=== PATIENT | male | born 2000 | race Two or more races ===

== ENCOUNTER 2025-05-10 23:05 | Inpatient (IN) | payer MEDICAID, OTHER ==
[~2025-05-10] VITALS: Ht 175.3 cm; Wt 62.0 kg
--- NOTE | 2025-05-11 00:36 | DVH ---
CT ABDOMEN AND PELVIS WITHOUT CONTRAST: HISTORY: ABD PAIN COMPARISON: None CONTRAST: IV contrast: None TECHNIQUE: Spiral CT performed from the dome of the diaphragm to the pubic symphysis without IV contr ast. Dose reduction technique was used on this scan by utilizing automated exposure control, adjustment of the mA and/or kV according to the patient size. DICOM format image data available to non-affiliated external healthcare facilities or entities on a secure, media free, reciprocally searchable basis wit h patient authorization for at least a 12 month period after the study. FINDINGS: Limited evaluation of the solid organs in the absence of IV contrast. Motor Equipment Lieutenant: Unremarkable Lung bases: No significant opacities or pleural fluid. Hepatobiliary: No focal hepatic lesion or intrahepatic biliary dilatation. Gallbladder appears parviz l. Pancreas normal morphology and duct caliber. Normal splenic parenchyma. : The kidneys are without solid mass, hydronephrosis or nephrolithiasis. Normal ureteral caliber. N o abnormality identified in the bladder. Normal adrenal morphology. GI: No evidence for bowel obstruction. No mesenteric stranding or wall thickening. No intraperitoneal adenopathy, masses or fluid. The appendix is not definitively seen, though there is no CT evidence o f acute appendicitis. Retroperitoneum: No retroperitoneal adenopathy. Cardiovascular: Normal aortic caliber. Musculoskeletal: No focal lytic or blastic lesion. No fracture or acute derangement. IMPRESSION: 1. No acute abdominopelvic abnormality identified.
--- NOTE | 2025-05-11 00:55 | DVH ---
ULTRASOUND OF SCROTUM AND CONTENTS. INDICATION: PAIN COMPARISON: None TECHNIQUE: Multiple real-time grayscale sonographic and color and duplex Doppler images of the scrotu m and its contents were obtained. FINDINGS: The right testicle measures 3.8 x 2.7 x 1.9 cm. The left testicle measures 3.7 x 2.4 x 2.0 cm. Both testicles demonstrate homogeneous echotexture without evidence of focal lesions. Suggestion of m icrolithiasis bilaterally. The right epididymal head measures 1.2 cm. The left epididymal head measures 1.2 cm. Right epididymal cyst measures 3 mm. Subsequent color and duplex Doppler interrogation of the testes demonstrated symmetric normal vascula r flow to both testicles. No focal areas of hyperemia were seen. IMPRESSION: 1. No evidence of torsion, epididymitis, and/or orchitis. 2. 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
[2025-05-11 01:50] LABS: Urine Bacteria None Seen /hpf (None Seen)
[2025-05-11 01:53] LABS: Urine Blood TRACE /uL (Negative); Urine Clarity Clear (Clear); Urine Color Yellow (Yellow); Urine Mucus FEW (None Seen); Urine Protein, UAD Negative (Negative); Urine Specific Gravity 1.029 (1.001-1.035); Urine Squamous Epithelial Cell None Seen /hpf (<5); Urine Urobilinogen 2 mg/dL (Negative); Urine WBC 1 /HPF (0-3); Urine pH 6.5 (5.0-9.0)
--- NOTE | 2025-05-11 01:59 | ED.PDOC ---
General HPI Comments 24-year-old male complaining of bilateral testicular pain that radiates to his pelvic region that started two days ago. States pins getting worse over the last day. Patient reports a history of noticing decreased pressure with urination over the last month. States over the last few weeks he has noticed a decrease in see meningitis ablation. States he feels as though he is retaining fluids. States today he is having more pelvic pressure. He went to urinate once earlier in the day and states it was a small amount. States he has been straining to urinate. Denies any flank pain or back pain. Does report a history of testicular pain, when he was 16 years old he had similar pains but not had no significant diagnosis, states he had nerve block shots place in the testicular region and nausea and result. No trauma to the area no new foods no new medications. Nothing makes it better, nothing makes it worse. Chief Complaint: Testicle Pain Time Seen by MD: 23:15 Reviewed notes: Nurses Notes Allergies: Coded Allergies: NO KNOWN ALLERGIES (Unverified , 05/10/25) Information Source: Patient Mode of Arrival: Ambulatory Severity: Moderate Past Medical History PAST MEDICAL HISTORY: Denies Surgical History: Denies all surgeries Constitutional: denies: chills, diaphoresis, fatigue, fever, malaise, sweats, weakness, others EENTM: denies: blurred vision, double vision, ear bleeding, ear discharge, ear drainage, ear pain, ear ringing, eye pain, eye redness, hearing loss, mouth pain, mouth swelling, nasal discharge, nose bleeding, nose congestion, nose pain, photophobia, tearing, throat pain, throat swelling, voice changes, others Respiratory: denies: cough, hemoptysis, orthopnea, SOB at rest, shortness of breath, SOB with excertion, stridor, wheezing, others Cardiovascular: denies: chest pain, dizzy spells, diaphoresis, Dyspnea on exertion, edema, irregular heart beat, left arm pain, lightheadedness, palpitations, PND, syncope, others Gastrointestinal: denies: abdomen distended, abdominal pain, blood streaked bowels, constipated, diarrhea, dysphagia, difficulty swallowing, hematemesis, melena, nausea, poor appetite, poor fluid intake, rectal bleeding, rectal pain, vomiting, others Genitourinary: reports: testicle pain, urgency Physical Exam General Appearance: Moderate Distress, Normal HEENT: Normal ENT Inspection, Pharynx Normal, TMs Normal Neck: Full Range of Motion, Non-Tender, Normal, Normal Inspection Respiratory: Chest Non-Tender, Lungs Clear, No Accessory Muscle Use, No Respiratory Distress, Normal Breath Sounds Cardiovascular: No Edema, No JVD, No Murmur, No Gallop, Normal Peripheral Pu lses, Regular Rate/Rhythm Breast Exam: Deferred Gastrointestinal: No Organomegaly, Non Tender, No Pulsatile Mass, Normal Bowel Sounds, Soft, Suprapubic (Tender to palpation, fullness palpated) Genitalia: Testicle (Bilateral tenderness to palpation, no obvious swelling noted.) Pelvic: Deferred Rectal: Deferred Extremities: No calf tenderness, Normal capillary refill, Normal inspection, Normal range of motion, Non-tender, No pedal edema Musculoskeletal : Apperance: Normal Neurologic: Alert, food specialist II-XII nml as Tested, No Motor Deficits, Normal Affect, Normal Mood, No Sensory Deficits Cerebellar Function: Normal Reflexes: Normal Skin: Dry, Normal Color, Warm Lymphatic: No Adenopathy Was a procedure done? Was a procedure done?: No Differential Diagnosis Kidney stone (Female): N/A Kidney stone (Male): Cholelithiasis, Pancreatitis, Pyelonephritis, Renal failure, Urinary obstruction, Urinary tract infection X-Ray, Labs, Meds, VS Vital Signs Date Time Temp Pulse Resp B/P (MAP) Pulse Ox O2 Delivery O2 Flow Rate FiO2 05/10/25 23:19 98.6 69 20 142/4 (50) 100 98.6 Lab Test 05/11/25 01:50 Range/Units Urine Color Pending Urine Clarity Pending Urine pH Pending Urine Specific [place] Pending Urine Protein Pending Urine Ketones Pending Urine Blood Pending Urine Nitrite Pending Urine Bilirubin Pending Urine Urobilinogen Pending Urine Leukocyte Esterase Pending Urine RBC Pending Urine Microscopic WBC Pending Urine Squamous Epithelial Cells Pending Urine Bacteria Pending Urine Glucose Pending X-Ray, Labs, Meds, VS Comment Imaging: X-rays and CT scans were reviewed and interpreted by this provider, imaging shows no fractures and no pathological disease. Pending radiology review. Laboratory: Labs reviewed and interpreted by this provider. No significant abnormalities noted. Patient has prior medical visits reviewed. Med reconciliation performed Vital signs reviewed Maurer catheter was placed, low urinary output noted Urinalysis sample sent. Patient is having intense series stool and testicular pain and low urinary output Patient will be admitted for urinary retention and testicular pain Recommend urology consult in the morning Time of 1ST Reevaluation: 01:59 Reevaluation 1ST: Unchanged Patient Education/Counseling: Diagnosis, Treatment Family Education/Counseling: Diagnosis, Treatment SEPSIS Sepsis Screen Date sepsis recognized/suspect: May 10, 2025 Time Sepsis recognized/suspect: 2314 Recent Procedure: No On Antibiotic Therapy: No Respiratory Rate >20: No Heart Rate >90: No Temp<36 C (96.8 F) or >38.3 C: No SBP <90 or MAP <65 mmHG: No New Acute Mental Status Change: No Is the patient on CPAP, BIPAP,: No Orders/Vitals/Labs Physician Orders Testicular Ultrasound (05/10/25 23:59) Urinalysis (05/10/25 23:59) Ct Ab Pel Wo Con-No Oral Or Iv (05/10/25 23:59) Insert/Manage Urinary Catheter QSHIFT (05/11/25 00:58) Morphine Sulfate Injection (05/11/25 02:00) Ondansetron Hcl (Zofran) (05/11/25 02:00) Vital Signs Date Time Temp Pulse Resp B/P (MAP) Pulse Ox O2 Delivery O2 Flow Rate FiO2 05/10/25 23:19 98.6 69 20 142/4 (50) 100 98.6 Departure 1 Departure Time of Disposition: 01:58 Impression: Primary Impression: Acute urinary retention Additional Impression: Testicular/scrotal pain Disposition: ADMITTED INPATIENT Condition: Stable Discharged With: Self Critical Care Note Critical Care Time?: No Stability Stability form required: No Heart Score Heart Score: Heart Score Response (Comments) Value History N/A 0 EKG N/A 0 Age N/A 0 Risk Factors N/A 0 Troponin N/A 0 Total 0 PAOLA SALEH May 11, 2025 01:59
[2025-05-11 02:15] LABS: Basophils # (auto) 0 10 ^3/uL (0-0.2); Basophils % (auto) 0.5 % (0.0-2.0); Eosinophils # (auto) 0.4 10 ^3/uL (0-0.8); Eosinophils % (auto) 3.7 % (0.0-7.0); Hematocrit 44.9 % (41.0-53.0); Hemoglobin 15.4 g/dL (13.5-17.5); Lymphocytes # (auto) 3.6 10 ^3/uL (0.4-5.4); Lymphocytes % (auto) 36.9 % (10.0-50.0); Mean Corpuscular Hemoglobin 30.9 pg (28.0-32.0); Mean Corpuscular Hgb Conc. 34.4 g/dL (32.0-36.0); Mean Corpuscular Volume 89.8 fL (80.0-100.0); Monocytes # (auto) 0.7 10 ^3/uL (0-1.3); Monocytes % (auto) 7.5 % (0.0-12.0); Neutrophils # (auto) 4.9 10 ^3/uL (1.6-8.6); Neutrophils % (auto) 51.4 % (37.0-80.0); Nucleated Red Blood Cells % 0.1 %; Platelet Count (auto) 331 10^3/uL (140-450); Red Blood Cells 4.99 10^6/uL (4.5-5.90); Red Cell Distribution Width 13.8 % (11.8-14.3); White Blood Cell 9.6 10^3/uL (4.4-10.8)
[2025-05-11 02:24] LABS: Anion Gap 13 (5-15); Carbon Dioxide 21 mmol/L (20-31); Potassium 3.7 mmol/L (3.5-5.1); Sodium 144 mmol/L (136-145)
[2025-05-11 02:25] LABS: Calcium 10.3 mg/dL (8.7-10.4)
[2025-05-11 02:30] LABS: BUN/Creatinine Ratio 12.8 (10.0-20.0); Blood Urea Nitrogen 12 mg/dL (9-23); Glucose 86 mg/dL (74-106)
[2025-05-11] MEDS: MORPHINE SULFATE 4 MG/ML SYR/VIAL IV ONE (02:38)
[2025-05-11] MEDS: ONDANSETRON HCL 4 MG/2 ML VIAL IV ONE (02:38)
[2025-05-11 02:49] VITALS: PULSE 62; RESP 18; O2SAT 97
[2025-05-11 02:52] LABS: Chloride 110 mmol/L (98-107)
[2025-05-11] MEDS ORDERED: ACETAMINOPHEN 325 MG TAB PO PRN (04:15)
[2025-05-11] MEDS: HYDROcodone-ACET 5/325MG TAB PO PRN (04:52)
--- NOTE | 2025-05-11 05:20 | DVHHP2 ---
History of Present Illness Reason for Visit: Urinary retention History of Present Illness 24-year-old male presents for evaluation of urinary retention. Patient reports that over the past two days he has been having bilateral testicular pain. He also reports of having a feeling of not completely emptying his bladder after he urinates. Today he felt his bladder distended. He states the flow of urine has also decreased in the past couple of days. No nausea or vomiting. No fever or chills. Past Medical History Denies Past Surgical History Denies Family History Noncontributory Smoke: No ALCOHOL: none Drugs: None Lives: with Family Review of Systems Review of Systems Review of systems are currently negative otherwise addressed in HPI. Allergies: Coded Allergies: NO KNOWN ALLERGIES (Unverified , 05/10/25) Medications Current Medications Medications Dose Ordered Sig/Noemí Route Start Time Stop Time Status Last Admin Dose Admin Acetaminophen/ Hydrocodone Bitart 1 tab Q4HP PRN PO 05/11/25 04:15 05/11/25 04:52 1 TAB Ondansetron HCl 4 mg Q4HP PRN IV 05/11/25 04:15 Acetaminophen 650 mg Q6HP PRN PO 05/11/25 04:15 Exam Vital Signs Vital Signs Date Time Temp Pulse Resp B/P (MAP) Pulse Ox O2 Delivery O2 Flow Rate FiO2 05/11/25 04:13 97.8 60 18 145/81 (102) 96 97.8 05/11/25 02:49 Room Air* 0 21 Exam Gen: 24-year-old male in mild distress Skin: Warm, dry, normal color and texture, no rash. HEENT: Normocephalic atraumatic, mucous membranes moist and pink. Neck: Cervical and supraclavicular nodes normal without enlargement, trachea is midline, thyroid gland is normal without masses. Pulmonary: Clear to auscultation and percussion bilaterally. Cardiac: Regular rate and rhythm. No murmur : Bilateral testicular pain with no noticeable swelling Abdomen: Soft, nontender, nondistended, bowel sounds present all 4 quadrants, no guarding, no rigidity, no organomegaly. Extremities: No cyanosis, clubbing, no edema Neuro: Cranial nerves II through XII grossly intact, normal affect and speech, no focal motor deficits. Labs/Xrays ORDERING PHYSICIAN: PAOLA SALEH PROCEDURE(s): ABPL - CT AB PEL WO CON-NO ORAL OR IV REASON: ABD PAIN ORDER NUMBER(s): [id number], ACCESSION NUMBER(s): [id number] CT ABDOMEN AND PELVIS WITHOUT CONTRAST: HISTORY: ABD PAIN COMPARISON: None CONTRAST: IV contrast: None TECHNIQUE: Spiral CT performed from the dome of the diaphragm to the pubic symphysis without IV contrast. Dose reduction technique was used on this scan by utilizing automated exposure control, adjustment of the mA and/or kV according to the patient size. DICOM format image data available to non-affiliated external healthcare facilities or entities on a secure, media free, reciprocally searchable basis with patient authorization for at least a 12 month period after the study. FINDINGS: Limited evaluation of the solid organs in the absence of IV contrast. Gaming Cashier: Unremarkable Lung bases: No significant opacities or pleural fluid. Hepatobiliary: No focal hepatic lesion or intrahepatic biliary dilatation. Gallbladder appears normal. Pancreas normal morphology and duct caliber. Normal splenic parenchyma. : The kidneys are without solid mass, hydronephrosis or nephrolithiasis. Normal ureteral caliber. No abnormality identified in the bladder. Normal adrenal morphology. GI: No evidence for bowel obstruction. No mesenteric stranding or wall thickening. No intraperitoneal adenopathy, masses or fluid. The appendix is not definitively seen, though there is no CT evidence of acute appendicitis. Retroperitoneum: No retroperitoneal adenopathy. Cardiovascular: Normal aortic caliber. Musculoskeletal: No focal lytic or blastic lesion. No fracture or acute derangement. IMPRESSION: 1. No acute abdominopelvic abnormality identified. RING PHYSICIAN: PAOLA SALEH PROCEDURE(s): TESUS - TESTICULAR ULTRASOUND REASON: PAIN ORDER NUMBER(s): [id number], ACCESSION NUMBER(s): [id number] ULTRASOUND OF SCROTUM AND CONTENTS. INDICATION: PAIN COMPARISON: None TECHNIQUE: Multiple real-time grayscale sonographic and color and duplex Doppler images of the scrotum and its contents were obtained. FINDINGS: The right testicle measures 3.8 x 2.7 x 1.9 cm. The left testicle measures 3.7 x 2.4 x 2.0 cm. Both testicles demonstrate homogeneous echotexture without evidence of focal lesions. Suggestion of microlithiasis bilaterally. The right epididymal head measures 1.2 cm. The left epididymal head measures 1.2 cm. Right epididymal cyst measures 3 mm. Subsequent color and duplex Doppler interrogation of the testes demonstrated symmetric normal vascular flow to both testicles. No focal areas of hyperemia were seen. IMPRESSION: 1. No evidence of torsion, epididymitis, and/or orchitis. 2. 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 Labs Test 05/11/25 02:06 05/11/25 01:50 Range/Units White Blood Count 9.6 4.4-10.8 10^3/uL Red Blood Count 4.99 4.5-5.90 10^6/uL Hemoglobin 15.4 13.5-17.5 g/dL Hematocrit 44.9 41.0-53.0 % Mean Corpuscular Volume 89.8 80.0-100.0 fL Mean Corpuscular Hemoglobin 30.9 28.0-32.0 pg Mean Corpuscular Hemoglobin Concent 34.4 32.0-36.0 g/dL Red Cell Distribution Width 13.8 11.8-14.3 % Platelet Count 331 140-450 10^3/uL Mean Platelet Volume 7.6 6.9-10.8 fL Neutrophils (%) (Auto) 51.4 37.0-80.0 % Lymphocytes (%) (Auto) 36.9 10.0-50.0 % Monocytes (%) (Auto) 7.5 0.0-12.0 % Eosinophils (%) (Auto) 3.7 0.0-7.0 % Basophils (%) (Auto) 0.5 0.0-2.0 % Neutrophils # (Auto) 4.9 1.6-8.6 10 ^3/uL Lymphocytes # (Auto) 3.6 0.4-5.4 10 ^3/uL Monocytes # (Auto) 0.7 0-1.3 10 ^3/uL Eosinophils # (Auto) 0.4 0-0.8 10 ^3/uL Basophils # (Auto) 0 0-0.2 10 ^3/uL Nucleated Red Blood Cells 0.1 % Sodium Level 144 136-145 mmol/L Potassium Level 3.7 3.5-5.1 mmol/L Chloride Level 110 H 98-107 mmol/L Carbon Dioxide Level 21 20-31 mmol/L Anion Gap 13 5-15 Blood Urea Nitrogen 12 9-23 mg/dL Creatinine 0.94 0.700-1.30 mg/dL Glomerular Filtration Rate Calc 115 >90 mL/min BUN/Creatinine Ratio 12.8 10.0-20.0 Serum Glucose 86 74-106 mg/dL Lactic Acid Level 1.7 0.4-2.0 mmol/L Calcium Level 10.3 8.7-10.4 mg/dL Urine Color Yellow Yellow Urine Clarity Clear Clear Urine pH 6.5 5.0-9.0 Urine Specific [place] 1.029 1.001-1.035 Urine Protein Negative Negative Urine Ketones Negative Negative Urine Blood Trace H Negative /uL Urine Nitrite Negative Negative Urine Bilirubin Negative Negative Urine Urobilinogen 2 H Negative mg/dL Urine Leukocyte Esterase Negative Negative /uL Urine RBC 24 0 - 3 /hpf Urine Microscopic WBC 1 0-3 /HPF Urine Squamous Epithelial Cells None seen <5 /hpf Urine Bacteria None seen None Seen /hpf Urine Mucus Few None Seen Urine Glucose Normal Normal mg/dL Assessment/Plan Assessment/Plan Assessment Urinary retention Testicular pain Plan Admit the patient to [facility] to the hospitalist Pain management Urology consultation Continue treatment per orders Plan discussed with: Patient My Orders Orders - ANGIE MORGAN Procedure Category Date Status Time * Urology Consult CONS 05/11/25 Transmitted 04:05 Basic Metabolic Panel LAB 05/12/25 Verified 04:00 Regular Diet DIET 05/11/25 Transmitted Breakfast Admit ADMIT 05/11/25 Transmitted 04:05 Hydrocodone-Acet PHA 05/11/25 In Process 5/325mg Tab ([place] 04:15 Ondansetron Hcl PHA 05/11/25 In Process (Zofran) 04:15 Condition: Stable CHENTE 05/11/25 In Process 04:05 Acetaminophen Tablet PHA 05/11/25 In Process (Tylenol Tablet) 04:15 Bedrest With Bathroom CHENTE 05/11/25 In Process Privileg 04:05 Date of Service: May 11, 2025 Billing Provider: ANGIE MORGAN Common Visit Codes: [id number] INP/OBS CARE (MOD) ANGIE MORGAN May 11, 2025 05:20
[2025-05-11 08:43] VITALS: BP 127/76; PULSE 54; PULSE 55; RESP 16; TEMP 97.6; O2SAT 99
[2025-05-11 08:46] VITALS: BP 127/76; PULSE 54; RESP 16; TEMP 97.6; O2SAT 99
[2025-05-11 13:05] VITALS: BP 119/72; PULSE 55; RESP 16; TEMP 97.4; O2SAT 99
[2025-05-11 17:04] VITALS: BP 103/72; PULSE 62; RESP 20; TEMP 97.7; O2SAT 99
[2025-05-11 20:00] VITALS: PULSE 61; RESP 16; O2SAT 100
[2025-05-12] VITALS (7 sets, daily range): BP systolic 109–131; BP diastolic 61–86; PULSE 52–78; RESP 16–20; TEMP 97.3–98.6; O2SAT 98–100
[2025-05-12 07:25] LABS: Potassium 4.3 mmol/L (3.5-5.1); Sodium 145 mmol/L (136-145)
[2025-05-12 07:26] LABS: Anion Gap 10 (5-15); Carbon Dioxide 28 mmol/L (20-31)
[2025-05-12 07:27] LABS: Calcium 10.1 mg/dL (8.7-10.4)
[2025-05-12 07:29] LABS: Chloride 107 mmol/L (98-107)
[2025-05-12 07:31] LABS: Glucose 75 mg/dL (74-106)
[2025-05-12 07:32] LABS: BUN/Creatinine Ratio 13.3 (10.0-20.0); Blood Urea Nitrogen 12 mg/dL (9-23)
--- NOTE | 2025-05-12 16:01 | DVHPN2 ---
Subjective Still having some pain Reviewed: H&P, Labs Changes from previous H/P or p: No Changes Objective Vitals Vital Signs Date Time Temp Pulse Resp B/P (MAP) Pulse Ox O2 Delivery O2 Flow Rate FiO2 05/12/25 12:51 97.7 60 17 124/77 (93) 99 97.7 05/12/25 08:31 Room Air* 0 21 General Appearance: Alert, Oriented X3 Lungs: Clear to auscultation Cardiovascular: Regular rate, Normal S1, Normal S2 Abdomen: Normal bowel sounds Medications Current Medications Medications Dose Ordered Sig/Noemí Route Start Time Stop Time Status Last Admin Dose Admin Acetaminophen/ Hydrocodone Bitart 1 tab Q4HP PRN PO 05/11/25 04:15 05/12/25 14:13 1 TAB Ondansetron HCl 4 mg Q4HP PRN IV 05/11/25 04:15 Acetaminophen 650 mg Q6HP PRN PO 05/11/25 04:15 Laboratory Results Laboratory Tests 05/11/25 02:06 05/12/25 04:43 Chemistry Test 05/12/25 04:43 Calcium Level 10.1 mg/dL (8.7-10.4) Urinalysis Test 05/11/25 01:50 Urine Color Yellow (Yellow) Urine Clarity Clear (Clear) Urine pH 6.5 (5.0-9.0) Urine Specific [place] 1.029 (1.001-1.035) Urine Protein Negative (Negative) Urine Ketones Negative (Negative) Urine Blood Trace /uL (Negative) H Urine Nitrite Negative (Negative) Urine Bilirubin Negative (Negative) Urine Urobilinogen 2 mg/dL (Negative) H Urine Leukocyte Esterase Negative /uL (Negative) Urine RBC 24 /hpf (0 - 3) Urine Microscopic WBC 1 /HPF (0-3) Urine Squamous Epithelial Cells None seen /hpf (<5) Urine Bacteria None seen /hpf (None Seen) Urine Mucus Few (None Seen) Urine Glucose Normal mg/dL (Normal) Assessment/Plan Assessment/Plan Urinary retention Testicular pain Continue jennings Pain control with IV morphine urology consulted pending Dispo: If pain better tomorrow will plan for discharge Plan discussed with: Patient My Orders Orders - ALIYA JOHNSON MD Procedure Category Date Status Time * Embroiderer CONS 05/12/25 Transmitted Consult Date of Service: May 12, 2025 Billing Provider: ALIYA JOHNSON MD Common Visit Codes: [id number] INP/OBS CARE(HIGH) ALIYA JOHNSON MD May 12, 2025 16:00
[2025-05-13] VITALS (7 sets, daily range): BP systolic 112–139; BP diastolic 66–87; PULSE 53–89; RESP 17–20; TEMP 96.8–98; O2SAT 97–100
[2025-05-13] MEDS: ONDANSETRON HCL 4 MG/2 ML VIAL IV PRN (04:19)
--- NOTE | 2025-05-13 11:27 | DVHPN2 ---
Subjective The patient is seen and examined at bedside. Still complain of pain in his scrotum area. Complaint of discomfort of the Maurer. Reviewed: Care Plan, H&P, Labs, Medications, Previous Orders, Radiology Changes from previous H/P or p: No Changes Objective Vitals Vital Signs Date Time Temp Pulse Resp B/P (MAP) Pulse Ox O2 Delivery O2 Flow Rate FiO2 05/13/25 08:52 97.0 63 18 126/87 (100) 98 97.0 05/12/25 19:30 Room Air* 0 21 Intake/Output Intake and Output 05/13/25 07:00 Intake Total 3650 ml Output Total 870 ml Balance 2780 ml Intake Oral 3650 ml Output Urine Total 870 ml General Appearance: Alert, Oriented X3, Cooperative HEENT: Atraumatic, PERRLA, EOMI, Mucous membr. moist/pink Neck: Supple Lungs: Clear to auscultation Cardiovascular: Regular rate, Normal S1, Normal S2 Abdomen: Normal bowel sounds Neuro: Cranial nerves 3-12 NL Psych/Mental Status: Mental status NL Medications Current Medications Medications Dose Ordered Sig/Noemí Route Start Time Stop Time Status Last Admin Dose Admin Acetaminophen/ Hydrocodone Bitart 1 tab Q4HP PRN PO 05/11/25 04:15 05/13/25 04:19 1 TAB Ondansetron HCl 4 mg Q4HP PRN IV 05/11/25 04:15 05/13/25 04:19 4 MG Acetaminophen 650 mg Q6HP PRN PO 05/11/25 04:15 Laboratory Results Laboratory Tests 05/11/25 02:06 05/12/25 04:43 Urinalysis Test 05/11/25 01:50 Urine Color Yellow (Yellow) Urine Clarity Clear (Clear) Urine pH 6.5 (5.0-9.0) Urine Specific [place] 1.029 (1.001-1.035) Urine Protein Negative (Negative) Urine Ketones Negative (Negative) Urine Blood Trace /uL (Negative) H Urine Nitrite Negative (Negative) Urine Bilirubin Negative (Negative) Urine Urobilinogen 2 mg/dL (Negative) H Urine Leukocyte Esterase Negative /uL (Negative) Urine RBC 24 /hpf (0 - 3) Urine Microscopic WBC 1 /HPF (0-3) Urine Squamous Epithelial Cells None seen /hpf (<5) Urine Bacteria None seen /hpf (None Seen) Urine Mucus Few (None Seen) Urine Glucose Normal mg/dL (Normal) Labs and/or images reviewed: Labs reviewed by me Assessment/Plan Assessment/Plan Urinary retention Testicular pain Continuing current management. Continuing with Maurer. Waiting for urologist to see the patient. Continuing with IV morphine p.r.n. for pain control. Also continuing with [place]. Plan discussed with: Patient Date of Service: May 13, 2025 Billing Provider: ASHLEY FAJARDO MD Common Visit Codes: [id number] INP/OBS CARE(HIGH) ASHLEY FAJARDO MD May 13, 2025 11:27
--- NOTE | 2025-05-13 15:56 | DVHINCON2 ---
Date of service: May 13, 2025 Referring Physician Hospitalist Reason for Consultation Bilateral testicular pain Pelvic pain Urinary retention History of Present Illness 24-year-old male admitted to [facility] for urinary retention and testicular pain. Similar history of testicular pain 3-4 years ago treated with "nerve block" at [place]. He is c/o stranguira x 2 weeks. Maurer catheter was placed on admission. States his testicles are positioned lower than previously noted. He is also constipated. He does not know why. Patient reports that over the past two days he has been having bilateral testicular pain. He also reports of having a feeling of not completely emptying his bladder after he urinates. Today he felt his bladder distended. He states the flow of urine has also decreased in the past couple of days. No nausea or vomiting. No fever or chills. Past Medical History Vague neuralgia Past Surgical History "Nerve block" Family History: Diabetes mellitus G8 FATHER FHx: lupus erythematosus G8 MOTHER FHx: rheumatoid arthritis G8 MOTHER Fibromyalgia G8 MOTHER Glaucoma Allergies: Coded Allergies: NO KNOWN ALLERGIES (Unverified , 05/10/25) Home Meds No Active Prescriptions or Reported Meds Current Medications Current Medications Medications (Trade) Dose Ordered Sig/Noemí Route PRN Reason Start Time Stop Time Status Last Admin Tamsulosin HCl (Flomax) 0.4 mg QPM PO 05/13/25 18:00 Review of Systems Review of systems are currently negative otherwise addressed in HPI. Allergies: Coded Allergies: NO KNOWN ALLERGIES (Unverified , 05/10/25) Medications Current Medications Medications Dose Ordered Sig/Noemí Route Start Time Stop Time Status Last Admin Dose Admin Acetaminophen/ Hydrocodone Bitart 1 tab Q4HP PRN PO 05/11/25 04:15 05/11/25 04:52 1 TAB Ondansetron HCl 4 mg Q4HP PRN IV 05/11/25 04:15 Acetaminophen 650 mg Q6HP PRN PO 05/11/25 04:15 Vital Signs Vital Signs Date Time Temp Pulse Resp B/P (MAP) Pulse Ox O2 Delivery O2 Flow Rate FiO2 05/13/25 13:00 96.8 71 17 117/85 (96) 100 96.8 05/13/25 08:10 Room Air* 0 21 Physical Exam Vital Signs Date Time Temp Pulse Resp B/P (MAP) Pulse Ox O2 Delivery O2 Flow Rate FiO2 05/11/25 04:13 97.8 60 18 145/81 (102) 96 97.8 05/11/25 02:49 Room Air* 0 21 Exam Gen: 24-year-old male in mild distress Skin: Warm, dry, normal color and texture, no rash. HEENT: Normocephalic atraumatic, mucous membranes moist and pink. Neck: Cervical and supraclavicular nodes normal without enlargement, trachea is midline, thyroid gland is normal without masses. Pulmonary: Clear to auscultation and percussion bilaterally. Cardiac: Regular rate and rhythm. No murmur : Normal external genitalia. Urethral meatus patent. Testicles descended bilaterally. No masses. Abdomen: Soft, nontender, nondistended, bowel sounds present all 4 quadrants, no guarding, no rigidity, no organomegaly. Extremities: No cyanosis, clubbing, no edema Neuro: Cranial nerves II through XII grossly intact, normal affect and speech, no focal motor deficits. Labs/Diagnostic Data Labs Test 05/12/25 04:43 05/11/25 02:06 05/11/25 01:50 Range/Units Sodium Level 145 136-145 mmol/L Potassium Level 4.3 3.5-5.1 mmol/L Chloride Level 107 98-107 mmol/L Carbon Dioxide Level 28 20-31 mmol/L Anion Gap 10 5-15 Blood Urea Nitrogen 12 9-23 mg/dL Creatinine 0.90 0.700-1.30 mg/dL Glomerular Filtration Rate Calc 121 >90 mL/min BUN/Creatinine Ratio 13.3 10.0-20.0 Serum Glucose 75 74-106 mg/dL Calcium Level 10.1 8.7-10.4 mg/dL White Blood Count 9.6 4.4-10.8 10^3/uL Red Blood Count 4.99 4.5-5.90 10^6/uL Hemoglobin 15.4 13.5-17.5 g/dL Hematocrit 44.9 41.0-53.0 % Mean Corpuscular Volume 89.8 80.0-100.0 fL Mean Corpuscular Hemoglobin 30.9 28.0-32.0 pg Mean Corpuscular Hemoglobin Concent 34.4 32.0-36.0 g/dL Red Cell Distribution Width 13.8 11.8-14.3 % Platelet Count 331 140-450 10^3/uL Mean Platelet Volume 7.6 6.9-10.8 fL Neutrophils (%) (Auto) 51.4 37.0-80.0 % Lymphocytes (%) (Auto) 36.9 10.0-50.0 % Monocytes (%) (Auto) 7.5 0.0-12.0 % Eosinophils (%) (Auto) 3.7 0.0-7.0 % Basophils (%) (Auto) 0.5 0.0-2.0 % Neutrophils # (Auto) 4.9 1.6-8.6 10 ^3/uL Lymphocytes # (Auto) 3.6 0.4-5.4 10 ^3/uL Monocytes # (Auto) 0.7 0-1.3 10 ^3/uL Eosinophils # (Auto) 0.4 0-0.8 10 ^3/uL Basophils # (Auto) 0 0-0.2 10 ^3/uL Nucleated Red Blood Cells 0.1 % Lactic Acid Level 1.7 0.4-2.0 mmol/L Urine Color Yellow Yellow Urine Clarity Clear Clear Urine pH 6.5 5.0-9.0 Urine Specific [place] 1.029 1.001-1.035 Urine Protein Negative Negative Urine Ketones Negative Negative Urine Blood Trace H Negative /uL Urine Nitrite Negative Negative Urine Bilirubin Negative Negative Urine Urobilinogen 2 H Negative mg/dL Urine Leukocyte Esterase Negative Negative /uL Urine RBC 24 0 - 3 /hpf Urine Microscopic WBC 1 0-3 /HPF Urine Squamous Epithelial Cells None seen <5 /hpf Urine Bacteria None seen None Seen /hpf Urine Mucus Few None Seen Urine Glucose Normal Normal mg/dL PATIENT: KOFI ORTIZACCT: [id number] UNIT: [id number] : 2000 LOC: ER ROOM / BED: / AGE / SEX: 24 / M ADM STATUS: REG ER SERVICE [id number] ORDERING PHYSICIAN: PAOLA SALEH PROCEDURE(s): TESUS - TESTICULAR ULTRASOUND REASON: PAIN ORDER NUMBER(s): [id number], ACCESSION NUMBER(s): [id number] ULTRASOUND OF SCROTUM AND CONTENTS. INDICATION: PAIN COMPARISON: None TECHNIQUE: Multiple real-time grayscale sonographic and color and duplex Doppler images of the scrotum and its contents were obtained. FINDINGS: The right testicle measures 3.8 x 2.7 x 1.9 cm. The left testicle measures 3.7 x 2.4 x 2.0 cm. Both testicles demonstrate homogeneous echotexture without evidence of focal lesions. Suggestion of microlithiasis bilaterally. The right epididymal head measures 1.2 cm. The left epididymal head measures 1.2 cm. Right epididymal cyst measures 3 mm. Subsequent color and duplex Doppler interrogation of the testes demonstrated symmetric normal vascular flow to both testicles. No focal areas of hyperemia were seen. IMPRESSION: 1. No evidence of torsion, epididymitis, and/or orchitis. 2. 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 ATED BY: TALIB RENEE MD DICTATED DATE/TIME: 05/11/2551 SIGNED BY: TALIB RENEE MD SIGNED DATE/TIME: 05/11/2551 CC: PATIENT: KOFI ORTIZACCT: [id number] UNIT: [id number] : 2000 LOC: ER ROOM / BED: / AGE / SEX: 24 / M ADM STATUS: REG ER SERVICE [id number] ORDERING PHYSICIAN: PAOLA SALEH PROCEDURE(s): ABPL - CT AB PEL WO CON-NO ORAL OR IV REASON: ABD PAIN ORDER NUMBER(s): [id number], ACCESSION NUMBER(s): [id number] CT ABDOMEN AND PELVIS WITHOUT CONTRAST: HISTORY: ABD PAIN COMPARISON: None CONTRAST: IV contrast: None TECHNIQUE: Spiral CT performed from the dome of the diaphragm to the pubic symphysis without IV contrast. Dose reduction technique was used on this scan by utilizing automated exposure control, adjustment of the mA and/or kV according to the patient size. DICOM format image data available to non-affiliated external healthcare facilities or entities on a secure, media free, reciprocally searchable basis with patient authorization for at least a 12 month period after the study. FINDINGS: Limited evaluation of the solid organs in the absence of IV contrast. Aircraft Mechanic Structures: Unremarkable Lung bases: No significant opacities or pleural fluid. Hepatobiliary: No focal hepatic lesion or intrahepatic biliary dilatation. Gallbladder appears normal. Pancreas normal morphology and duct caliber. Normal splenic parenchyma. : The kidneys are without solid mass, hydronephrosis or nephrolithiasis. Normal ureteral caliber. No abnormality identified in the bladder. Normal adrenal morphology. GI: No evidence for bowel obstruction. No mesenteric stranding or wall thickening. No intraperitoneal adenopathy, masses or fluid. The appendix is not definitively seen, though there is no CT evidence of acute appendicitis. Retroperitoneum: No retroperitoneal adenopathy. Cardiovascular: Normal aortic caliber. Musculoskeletal: No focal lytic or blastic lesion. No fracture or acute derangement. IMPRESSION: 1. No acute abdominopelvic abnormality identified. ATED BY: FELIX PACKER MD DICTATED DATE/TIME: 05/11/2532 SIGNED BY: FELIX PACKER MD SIGNED DATE/TIME: 05/11/2532 CC: Assessment Possible urethral stricture (Patient states Maurer catheter placement was extr tam difficult) Pelvic pain Prostatitis Microhematuria, possibly from catheterization Plan/Recommendation Keep Maurer to gravity Discharge home when stable Oral antibiotics/laxatives and analgesics. Outpatient cystoscopy TBA Plan discussed with: Patient, Other SAV VALLES MD May 13, 2025 15:56
[2025-05-13] MEDS: MAGNESIUM CITRATE SOLUTION 300 ML BTL PO ONE (17:08)
[2025-05-13] MEDS: TAMSULOSIN HYDROCHLORIDE 0.4 MG CAP PO SCH (17:08)
[2025-05-14 01:00] VITALS: BP 130/78; PULSE 74; RESP 17; TEMP 97.8; O2SAT 98
[2025-05-14 05:00] VITALS: BP 109/69; PULSE 75; RESP 19; TEMP 98.1; O2SAT 97
[2025-05-14 09:00] VITALS: BP 106/73; PULSE 78; RESP 17; TEMP 97.5; O2SAT 97
--- NOTE | 2025-05-14 11:44 | DVHPN2 ---
Subjective The patient is seen and examined at bedside. Still complain of pain in his scrotum area. Complaint of discomfort of the Maurer. Reviewed: Care Plan, H&P, Labs, Medications, Previous Orders, Radiology Objective Vitals Vital Signs Date Time Temp Pulse Resp B/P (MAP) Pulse Ox O2 Delivery O2 Flow Rate FiO2 05/14/25 09:00 97.5 78 17 106/73 (84) 97 97.5 05/14/25 08:10 Room Air* 0 21 General Appearance: Alert, Oriented X3, Cooperative HEENT: Atraumatic, PERRLA, EOMI, Mucous membr. moist/pink Neck: Supple Lungs: Clear to auscultation Cardiovascular: Regular rate, Normal S1, Normal S2 Abdomen: Normal bowel sounds Neuro: Cranial nerves 3-12 NL Psych/Mental Status: Mental status NL Medications Current Medications Medications Dose Ordered Sig/Noemí Route Start Time Stop Time Status Last Admin Dose Admin Acetaminophen/ Hydrocodone Bitart 1 tab Q4HP PRN PO 05/11/25 04:15 05/13/25 14:48 1 TAB Ondansetron HCl 4 mg Q4HP PRN IV 05/11/25 04:15 05/14/25 02:33 4 MG Acetaminophen 650 mg Q6HP PRN PO 05/11/25 04:15 Tamsulosin HCl 0.4 mg QPM PO 05/13/25 18:00 05/13/25 17:08 0.4 MG Laboratory Results Laboratory Tests 05/11/25 02:06 05/12/25 04:43 Urinalysis Test 05/11/25 01:50 Urine Color Yellow (Yellow) Urine Clarity Clear (Clear) Urine pH 6.5 (5.0-9.0) Urine Specific [place] 1.029 (1.001-1.035) Urine Protein Negative (Negative) Urine Ketones Negative (Negative) Urine Blood Trace /uL (Negative) H Urine Nitrite Negative (Negative) Urine Bilirubin Negative (Negative) Urine Urobilinogen 2 mg/dL (Negative) H Urine Leukocyte Esterase Negative /uL (Negative) Urine RBC 24 /hpf (0 - 3) Urine Microscopic WBC 1 /HPF (0-3) Urine Squamous Epithelial Cells None seen /hpf (<5) Urine Bacteria None seen /hpf (None Seen) Urine Mucus Few (None Seen) Urine Glucose Normal mg/dL (Normal) Assessment/Plan Assessment/Plan Urinary retention Testicular pain Continuing current management. Continuing with Maurer. Waiting for urologist to see the patient. Continuing with IV morphine p.r.n. for pain control. Also continuing with [place]. ASHLEY FAJARDO MD May 14, 2025 11:43
[2025-05-14 12:37] VITALS: BP 110/78; PULSE 85; RESP 17; TEMP 97.3; O2SAT 98
[2025-05-14] MEDS ORDERED: HYDR-4902 PO (13:10)
[2025-05-14] MEDS ORDERED: DOXY-286 PO (13:10)
[2025-05-14] MEDS ORDERED: TAMS-35 PO (13:10)
--- NOTE | 2025-05-14 13:13 | DVHDS2 ---
Discharge Summary Date of Admission May 11, 2025 at 04:05 Date of Discharge: May 14, 2025 Labs/Diagnostic Data: Laboratory Results Test 05/12/25 04:43 05/11/25 02:06 05/11/25 01:50 Sodium Level 145 mmol/L (136-145) Potassium Level 4.3 mmol/L (3.5-5.1) Chloride Level 107 mmol/L (98-107) Carbon Dioxide Level 28 mmol/L (20-31) Anion Gap 10 (5-15) Blood Urea Nitrogen 12 mg/dL (9-23) Creatinine 0.90 mg/dL (0.700-1.30) Glomerular Filtration Rate Calc 121 mL/min (>90) BUN/Creatinine Ratio 13.3 (10.0-20.0) Serum Glucose 75 mg/dL (74-106) Calcium Level 10.1 mg/dL (8.7-10.4) White Blood Count 9.6 10^3/uL (4.4-10.8) Red Blood Count 4.99 10^6/uL (4.5-5.90) Hemoglobin 15.4 g/dL (13.5-17.5) Hematocrit 44.9 % (41.0-53.0) Mean Corpuscular Volume 89.8 fL (80.0-100.0) Mean Corpuscular Hemoglobin 30.9 pg (28.0-32.0) Mean Corpuscular Hemoglobin Concent 34.4 g/dL (32.0-36.0) Red Cell Distribution Width 13.8 % (11.8-14.3) Platelet Count 331 10^3/uL (140-450) Mean Platelet Volume 7.6 fL (6.9-10.8) Neutrophils (%) (Auto) 51.4 % (37.0-80.0) Lymphocytes (%) (Auto) 36.9 % (10.0-50.0) Monocytes (%) (Auto) 7.5 % (0.0-12.0) Eosinophils (%) (Auto) 3.7 % (0.0-7.0) Basophils (%) (Auto) 0.5 % (0.0-2.0) Neutrophils # (Auto) 4.9 10 ^3/uL (1.6-8.6) Lymphocytes # (Auto) 3.6 10 ^3/uL (0.4-5.4) Monocytes # (Auto) 0.7 10 ^3/uL (0-1.3) Eosinophils # (Auto) 0.4 10 ^3/uL (0-0.8) Basophils # (Auto) 0 10 ^3/uL (0-0.2) Nucleated Red Blood Cells 0.1 % Lactic Acid Level 1.7 mmol/L (0.4-2.0) Urine Color Yellow (Yellow) Urine Clarity Clear (Clear) Urine pH 6.5 (5.0-9.0) Urine Specific [place] 1.029 (1.001-1.035) Urine Protein Negative (Negative) Urine Ketones Negative (Negative) Urine Blood Trace /uL (Negative) Urine Nitrite Negative (Negative) Urine Bilirubin Negative (Negative) Urine Urobilinogen 2 mg/dL (Negative) Urine Leukocyte Esterase Negative /uL (Negative) Urine RBC 24 /hpf (0 - 3) Urine Microscopic WBC 1 /HPF (0-3) Urine Squamous Epithelial Cells None seen /hpf (<5) Urine Bacteria None seen /hpf (None Seen) Urine Mucus Few (None Seen) Urine Glucose Normal mg/dL (Normal) Other Laboratory Tests 05/12/25 04:43 05/11/25 02:06 Final Diagnosis/Problems List scrotum edema Discharge Disposition: Home Discharge Instruct/Medications Diet: Regular Activity: No Restrictions, As Tolerated Follow Up/Referral: pcp 1-2 weeks Medications: resume home meds Discharge Statement: "Patient was advised to return to the ER or call 911 if any headaches, dizziness, shortness of breath, chest pain, abdominal pain, bleeding, fevers, or worsening of medical condition. Patient was counseled about treatment plan, medications, possible side effects, patientverbalized understanding. All questions were answered to the best of my ability. This discharge took greater then 30 minutes in planning, reviewing documentation, counseling the patient, and discussing with other team members." ASSESSMENT ASSESSMENT Assessment scrotum edema ASHLEY FAJARDO MD May 14, 2025 13:13
[2025-05-14 15:47] VITALS: BP 110/78; PULSE 85; RESP 17; TEMP 97.3; O2SAT 98
== END 2025-05-14 17:15 | disposition home or self-care (01) | DRG 501 ==
LOC: ER 23:05 → OVERFLOW 05-11 04:05 → CENTRAL 05-11 20:50
PROVIDERS: ADMIT Internal Medicine; ATTEND Internal Medicine
DX: N41.9 Inflammatory disease of prostate, unspecified (principal); K59.00 Constipation, unspecified; N50.89 Other specified disorders of the male genital organs; N50.82 Scrotal pain; R33.9 Retention of urine, unspecified; R31.29 Other microscopic hematuria; Z83.3 Family history of diabetes mellitus
CPT/HCPCS: 36415; 74176; 76870; 80048; 81001; 83605; 85025; 96374; 96375; G0378; J2405